=== PATIENT | female | born 1985 | race Asian ===

== ENCOUNTER 2019-01-23 11:00 | Outpatient (CLI) | payer MEDICAID, SELFPAY ==
[2019-01-23 11:36] VITALS: BMI 26.8
[2019-01-23] MEDS: Lactated Ringers 1,000 ML 999 ML IV (12:00)
[2019-01-23] MEDS: Betamethasone/Betamethasone 30 MG/5 ML Vial 12 MG IM (12:01)
[2019-01-23 12:10] LABS: Mucous, Urine 0 SEEN /hpf (<or=2+); Red Blood Cells-Urine 0 SEEN /hpf (0-5); White Blood Cells 0 SEEN /hpf (0-5)
[2019-01-23 12:12] LABS: Color, Urine Yellow (Yellow); Glucose, Dipstick Normal (Normal); Ketone-Dipstick 15 mg/dl (Negative); Leukocyte Esterase-Dipstick Negative /ul (Negative); Nitrite-Dipstick Negative (Negative); Occult Blood-Urine Negative /ul (Negative); Protein-Dipstick Negative (Negative); Urine Bilirubin Dipstick Negative (Negative); Urine Clarity Sl. Cloudy (Clear); Urine Urobilinogen Normal (Normal)
[2019-01-23 12:14] LABS: Hematocrit 39.1 % (37-47); Hemoglobin 13.3 g/dl (12.0-15.0); Mean Corpuscular Hgb 29.5 pg (27.0-32.0); Mean Corpuscular Volume 86.7 fL (81-99); Mean Platelet Vol. 10.7 fl (6.2-12.0); Platelet Count 224 K/mm3 (150-450); RBC Distribution Width CV 13.4 % (11.6-14.6); RBC Distribution Width SD 42.7 fl (35.1-43.9); Red Blood Count 4.51 M/mm3 (4.2-5.4); White Blood Count 9.7 K/mm3 (4.4-11.0)
[2019-01-23 12:15] LABS: Scan Indicated on CBC? Y/N NO
[2019-01-23 12:24] LABS: Bacteria RARE /hpf (None Seen); Squamous Epithelial Cells - UA 0-5 SEEN /hpf (5-10)
--- NOTE | 2019-02-16 07:23 | OB.TRI.PN ---
Progress Notes Date of Service: 01/23/19 Progress Note: Presented to office for visit due to painful uterine contractions every 5 minutes and rating pain a 9/10. Thought she had leakage of fluid, wet prep negative in office. Sent to L&D for evaluation of labor. No vaginal bleeding and good movement. O: Cervix FT/posterior/thick FHT 120, moderate variability, accels, no decels, category 1 TOCO: Contractions 5 minutes apart, mild, lasting 90-110 seconds. Then changed to every 7-10 minutes mild A: False labor abdominal pain contractions P: 1) Contractions frequency and strength decreased. Patient more comfortable and resting in bed. False labor and no cervical change from office. 2) , Celestone dose given today, repeat in 24hrs, follow up in office with due to DM and would like to check blood sugar. 3) Give 1 liter LR. UA negative. 3) Discharge home, labor instructions reviewed. Laboratory Studies: Laboratory Tests 01/23/19 01/23/19 Range/Units 11:50 11:30 WBC 9.7 (4.4-11.0) K/mm3 RBC 4.51 (4.2-5.4) M/mm3 Hgb 13.3 (12.0-15.0) g/dl Hct 39.1 (37-47) % MCV 86.7 (81-99) fL MCH 29.5 (27.0-32.0) pg MCHC 34.0 (32-36) g/gl RDW 13.4 (11.6-14.6) % RDW Differential 42.7 (35.1-43.9) fl Plt Count 224 (150-450) K/mm3 MPV 10.7 (6.2-12.0) fl Urine Color Yellow (Yellow) Urine Clarity Sl. Cloudy (Clear) Urine pH 6.0 (5.0 - 8.0) Ur Specific [place] 1.010 (1.002-1.030) Urine Protein Negative (Negative) mg/dl Urine Glucose (UA) Normal (Normal) mg/dl Urine Ketones 15 H (Negative) mg/dl Urine Occult Blood Negative (Negative) /ul Urine Nitrite Negative (Negative) Urine Bilirubin Negative (Negative) mg/dL Urine Urobilinogen Normal (Normal) mg/dl Ur Leukocyte Esterase Negative (Negative) /ul Urine RBC 0 SEEN (0-5) /hpf Urine WBC 0 SEEN (0-5) /hpf Ur Squamous Epith Cells 0-5 SEEN (5-10) /hpf Urine Bacteria RARE (None Seen) /hpf Urine Mucus 0 SEEN (<or=2+) /hpf
== END 2019-01-23 14:28 | disposition home or self-care (01) ==
LOC: WPOUT 11:29 → WP 01-24 10:12
PROVIDERS: Family Provider Family Medicine; PCP Family Medicine; Referring Provider Advanced Practice Midwife; Visit Provider Advanced Practice Midwife
DX: O47.9 False labor, unspecified (principal)
CPT/HCPCS: 96360; 59025; 59050; 81001; 85027; 87086; 87088; 96372; 99218; J7120; G0378; J0702

== ENCOUNTER 2019-01-31 10:10 | Inpatient (IN) | payer MEDICAID, SELFPAY ==
[2019-01-31] VITALS (18 sets, daily range): BP systolic 97–110; BP diastolic 57–72; PULSE 86–115; RESP 16–20; TEMP 35.8–36.7; O2SAT 95–100; BMI 27.1
[2019-01-31] MEDS: Lactated Ringers 1,000 ML 150 ML IV (10:30)
[2019-01-31 10:50] LABS: Absolute Lymphocyte Count 2.22 X10^3/ul (0.83-4.51); Absolute Neutrophil Count 15.1 X10^3/uL (2.0-7.7); Basophil# 0.03 X10^3/uL; Basophil% 0.2 % (0-1); Eosinophil# 0.18 X10^3/uL; Hematocrit 41.2 % (37-47); Hemoglobin 14.3 g/dl (12.0-15.0); Lymphocyte # 2.22 X10^3/ul (4.0); Lymphocyte % 11.7 % (19-41); Mean Corp Hgb Conc 34.7 g/gl (32-36); Mean Corpuscular Hgb 29.9 pg (27.0-32.0); Mean Corpuscular Volume 86.2 fL (81-99); Mean Platelet Vol. 10.7 fl (6.2-12.0); Monocyte# 1.34 X10^3/uL; Monocyte% 7.1 % (0-10); Neutrophil # 15.08 X10^3/uL (2.7-7.7); Neutrophil % 79.6 % (47-70); Platelet Count 256 K/mm3 (150-450); RBC Distribution Width CV 13.5 % (11.6-14.6); RBC Distribution Width SD 42.6 fl (35.1-43.9); Red Blood Count 4.78 M/mm3 (4.2-5.4); White Blood Count 18.9 K/mm3 (4.4-11.0)
[2019-01-31] MEDS: Sodium Citrate/Citric Acid 30 ML UDC PO (10:50)
[2019-01-31 10:51] LABS: POSITIVE COUNT NO; POSITIVE DIFFERENTIAL NO; POSITIVE MORPHOLOGY NO
[2019-01-31] MEDS: Lactated Ringers 1,000 ML 999 ML IV (11:00)
[2019-01-31] MEDS: Cefazolin 2 GM in 0.9% Normal Saline 100 ML IV (11:06)
[2019-01-31] MEDS: Oxytocin 30 units/NS 500 ml 30 UNITS/500 ML IV.SOLN 167 UNITS IV (11:19)
--- NOTE | 2019-01-31 12:23 | PCM.HP.OB ---
- Problem List (1) 36 weeks gestation of Status: Acute (2) labor Status: Acute (3) Gestational diabetes Status: Acute (4) Current lake with history of congenital heart disease in prior child, antepartum Status: Acute (5) History of delivery Status: Acute (6) Echogenic intracardiac focus of fetus on ultrasound Status: Acute (7) Consanguinity Status: Acute (8) History of pre-eclampsia Status: Acute (9) History of delivery Status: Acute History Date of Admission: 01/31/19 Final MIGUEL ANGEL: 02/27/19 Gestational age: 36 Weeks and 1 Days History of this : This is a 33 year-old, G4, P2103, at 36 weeks gestational age admitted in labor. On admission she was 4 cm dilated with a bulging bag of water, and get q 1-2 mins. +Bloody show. H/o GDM: On no medication or insulin in the , but patient was not bringing in BG logs for review to appointments. Son w/ pulmonary stenosis: Pt met with MFM and had echo in this . H/o 3 prior sections Echogenic intracardiac focus on US: Pt did not get NIPT. Not seen on echo. Consanguinity: Pt and first cousins. H/o pre-e: Had prior IOL at 34 wks gestation for pre-e. Allergies No Known Allergies Allergy (Verified 01/31/19 10:41) Home Medications: Home Medications Vits [Prenatabs FA] 1 tablet PO DAILY 01/23/19 Smoking Status: Never smoker Alcohol: None Number of Fetus(es): 1 Heart Tracing: Patient was having recurrent late decelerations and variable decelerations prior to section. Moderate variability in between TOCO Analysis: Ctx's q 1-2 min History Past Pregnancies: Past Pregnancies Delivery Date Name GA/Weeks Outcome Route Weight Infant Gender Labor Length Anesthesia Delivery Location Provider FOB 33 IOL for pre-e C/S 38 C/S 39 C/S Labs: Normal echo 1 hr and 3 hr GTT abnormal B positive Antibody screen neg Hgb 12.3 UDS neg GC/CT neg HIV neg Hep B neg RPR NR RI Expected Delivery Method: Stat Section Review of Systems Genitourinary: Reports: - - +Ctx's q 1-2 min and bloody show Physical Exam General: Alert, - - Uncomfortable with ctx's HEENT: Atraumatic Lungs: - - No increased resp effort Abdomen: Soft, Non Tender, Gravid Extremities:: No edema Neurological: Neuro grossly intact TAXATION AGENT: Normal external genitalia Estimated gestational size: Appropriate for gestational size Presentation: Cephalic Cervix Dilation (cm): 8 Station: 0 Effacement (%): 90 Assessment/Plan All Active Problems 36 weeks gestation of (Acute) labor (Acute) Gestational diabetes (Acute) Current lake with history of congenital heart disease in prior child, antepartum (Acute) History of delivery (Acute) Echogenic intracardiac focus of fetus on ultrasound (Acute) Consanguinity (Acute) History of pre-eclampsia (Acute) History of delivery (Acute) This is a 33 year-old, G4, P2103, at 36 weeks gestational age who presented with ctx's q 1-2 min, cervical dilation 4 cm and bloody show. FHT with recurrent late and variable decelerations. Due to NRFHT and cervical dilation, proceeded with emergent section. Cvx 8 cm dilated with bulging bag of water once back in OR. - Emergent RTLCS - Ancef prior to C/S - BG prior to C/S given GDM - See op note
--- NOTE | 2019-01-31 12:40 | PCM.OPRPT ---
Problem List (1) 36 weeks gestation of Status: Acute (2) labor Status: Acute (3) Gestational diabetes Status: Acute (4) Current lake with history of congenital heart disease in prior child, antepartum Status: Acute (5) History of delivery Status: Acute (6) Echogenic intracardiac focus of fetus on ultrasound Status: Acute (7) Consanguinity Status: Acute (8) History of pre-eclampsia Status: Acute (9) History of delivery Status: Acute Report of Operation Date of Procedure: 01/31/19 Pre-Operative Diagnosis: 36 week gestation, labor, non-reassuring heart tracing, A1GDM, h/o 3 prior sections Post-Operative Diagnosis: As above Surgery/Procedure Performed:: Emergent RLTCS via pfannenstiel incision Description of Surgical Findings:: Moderate-large amount of adhesions and scar tissue noted. Fascia adherent to the rectus muscles. Peritoneum adherent to the uterus around fundus. Uterus unable to be exteriorized due to adhesions. Adnexa not able to be fully assessed due to adhesive disease. Bladder significantly adhered to the anterior surface of the uterus. Very thin lower uterine segment. No evidence of abruption upon entry into the uterus and with inspection of the placenta. Normal appearing placenta with 3 vessel cord. No uterine dehiscence. Fetus in vertex position. Clear fluid Type of Anesthesia:: Spinal Specimen's removed: Placenta Drains: Seth draining clear, yellow urin Estimated Blood Loss (mL): 1000 Description of Procedure: Patient prepped and draped in usual sterile fashion with a leftward tilt. Spinal anesthesia was adequate. Scalpel was used along prior Pfannenstiel skin incision, and the incision was carried down to the underlying layer of fascia. The fascia was incised in the midline and extended laterally using [place] scissors. The fascia was dense and adherent to the rectus muscles. The fascia was then dissected off of the rectus muscles cephalad and caudad with dense adhesions noted. The rectus muscles were already in the midline. The peritoneum was entered sharply and noted to be adherent to the uterus. The fundus was attempted to be palpated but dense scar tissue was noted all around the uterus. The bladder was significantly adhered to the anterior surface of the uterus and a bladder flap could not be created. A low transverse incision was made on the uterus with good visualization of the bladder. The lower uterine segment was noted to be very thin. With a hand from below to elevated the head, the was delivered in vertex position atraumatically. Cord was clamped and cut immediately and was handed off to nursery staff. No evidence of abruption upon entry into the uterus. Placenta was manually removed and there was no evidence of abruption. Placenta was normal appearing and intact. 3 vessel cord. Cord gases were collected. The uterus was unable to be exteriorized due to the dense scarring. A very small extension was noted along the left lateral uterus. There was a small tear in the midline of the uterus just above the hysterotomy where the uterus was very thin, and this was repaired in a running locked fashion with Vicryl. The uterine incision was closed in a running locked fashion using Vicryl, and incorporating the left lateral extension. Several additional figure of eight sutures were placed for hemostasis. Arrista was placed over the uterine incision. The bladder was backfilled with methylene blue and noted to be intact. The fascia was then closed in a running fashion using Vicryl. The subcutaneous layer was irrigated and closed in a running fashion using Vicryl. The skin was closed in a subcuticular fashion and steri strips were applied. Dressing was then placed. Instrument counts were correct. Patient tolerated procedure well and was taken to the recovery room in stable condition. Grafts/Implants Used: None - Complications None - Admit VTE Documentation VTE Present on Admission: No VTE Mechan Device Prophylaxis: SCD's VTE Pharm Prophylaxis ordered?: No Delivery Classification: JOSIAS Final MIGUEL ANGEL: 02/27/19 Final MIGUEL ANGEL Source: LMP Gestational age: 36 Weeks and 2 Days Indications for : Nonreassuring Status, - - H/o 3 prior sections, labor Amniotic Membrane Rupture Type: Artificial Amniotic Fluid Description: Clear Specimen(s) sent to pathology: None Drain: Seth to straight drain Cord Entanglement: None Cord Vessel Description: 3 Vessels Esitmated Blood Loss (ml): 1000 Gender: Female Delayed cord clamping: No Pre-op Antibiotic Given: Ancef 2 grams IV x1 Complications: None - Admit VTE Documentation VTE Present on Admission: No VTE Mechan Device Prophylaxis: SCD's VTE Pharm Prophylaxis ordered?: No
[2019-01-31 12:50] LABS: Bedside Glucose 127 mg/dL (70-110)
[2019-01-31 13:40] LABS: Bedside Glucose 161 mg/dL (70-110)
[2019-01-31] MEDS: proMETHazine 25 MG/ML Syringe 12.5 MG IV (14:12)
[2019-01-31] MEDS: 0.9% Saline Lock 10 ML Syringe IV (14:12)
[2019-01-31] MEDS: Lactated Ringers 1,000 ML 100 ML IV (15:48)
[2019-01-31] MEDS: Scopolamine 1mg/72hr Patch 1 PATCH TD (16:27)
[2019-01-31] MEDS: Ketorolac 30 MG/ML Syringe IV (17:51)
[2019-01-31 22:31] LABS: Bedside Glucose 157 mg/dL (70-110)
[2019-02-01] VITALS (8 sets, daily range): BP systolic 97–110; BP diastolic 56–58; PULSE 109–126; RESP 14–20; TEMP 36.1–37.6; O2SAT 96–100
[2019-02-01] MEDS: Ketorolac 30 MG/ML Syringe IV ×4 (00:25→17:55)
[2019-02-01] MEDS: Lactated Ringers 1,000 ML 100 ML IV (01:46)
[2019-02-01 06:26] LABS: Hematocrit 32.5 % (37-47); Hemoglobin 10.9 g/dl (12.0-15.0); Mean Corp Hgb Conc 33.5 g/gl (32-36); Mean Corpuscular Hgb 29.3 pg (27.0-32.0); Mean Corpuscular Volume 87.4 fL (81-99); Mean Platelet Vol. 10.3 fl (6.2-12.0); Platelet Count 236 K/mm3 (150-450); RBC Distribution Width CV 13.8 % (11.6-14.6); RBC Distribution Width SD 44.2 fl (35.1-43.9); Red Blood Count 3.72 M/mm3 (4.2-5.4); White Blood Count 22.3 K/mm3 (4.4-11.0)
[2019-02-01 06:26] LABS: Bedside Glucose 130 mg/dL (70-110)
[2019-02-01 06:29] LABS: Scan Indicated on CBC? Y/N NO
--- NOTE | 2019-02-01 07:21 | PCM.PN.OB ---
Patient Problems: Active and Suspected Problems 36 weeks gestation of (Acute) labor (Acute) Gestational diabetes (Acute) Current lake with history of congenital heart disease in prior child, antepartum (Acute) History of delivery (Acute) Echogenic intracardiac focus of fetus on ultrasound (Acute) Consanguinity (Acute) History of pre-eclampsia (Acute) History of delivery (Acute) Subjective: Patient doing well. Pain controlled. Lochia normal. No CP, SOB, leg pain. Ama diet without N/V. Ervin in placed. Not yet ambulating. - Physical Exam General: Alert, No apparent distress HEENT: Atraumatic Lungs: - - No increased resp effort Abdomen: Soft, - - ATTP, FF@U Extremities: No Calf Tenderness Skin: No rashes Neurological: Neuro grossly intact Psych/Mental Status: Normal Affect, Appropriate Vital Signs Temp Pulse Resp BP Pulse Ox 97.0 F L 110 H 20 H 97/56 L 96 02/01/19 03:40 02/01/19 06:13 02/01/19 06:13 02/01/19 03:40 02/01/19 06:13 Oxygen Delivery Method Room Air Weight: 143 lb 11.862 oz Body Mass Index (BMI) 27.1 Intake and Output for Last 24 Hours 01/30/19 01/31/19 02/01/19 23:59 23:59 23:59 Intake Total 3905 / 3905 2784 / 2784 Output Total 1100 / 1100 2400 / 2400 Balance 2805 / 2805 384 / 384 Laboratory Tests Past 24 Hrs 01/31/19 01/31/19 02/01/19 10:40 10:40 06:05 WBC 18.9 H 22.3 H RBC 4.78 3.72 L Hgb 14.3 10.9 L Hct 41.2 32.5 L MCV 86.2 87.4 MCH 29.9 29.3 MCHC 34.7 33.5 RDW 13.5 13.8 RDW Differential 42.6 44.2 H Plt Count 256 236 MPV 10.7 10.3 Immature Gran % (Auto) 0.400 Neut % (Auto) 79.6 H Lymph % (Auto) 11.7 L [place] % (Auto) 7.1 Eos % (Auto) 1.0 Baso % (Auto) 0.2 Absolute Neuts (auto) 15.1 H Absolute Lymphs (auto) 2.22 Total Counted Not Reportable Blood Type B POSITIVE Antibody Screen NEGATIVE POC Glucose 02/01/19 01/31/19 01/31/19 06:17 22:22 13:34 POC Glucose 130 H 157 H 161 H 01/31/19 10:41 POC Glucose 127 H Medical Necessity - Tobacco Use Smoking Status: Never smoker Assessment/Plan All Active Problems 36 weeks gestation of (Acute) labor (Acute) Gestational diabetes (Acute) Current lake with history of congenital heart disease in prior child, antepartum (Acute) History of delivery (Acute) Echogenic intracardiac focus of fetus on ultrasound (Acute) Consanguinity (Acute) History of pre-eclampsia (Acute) History of delivery (Acute) POD#1 s/p emergent - GDM: BG's slightly elevated. Will start a carb controlled diet and continue to check BG QID. Fasting this AM 130, but patient last ate around 1am - Tachycardia into 110's. Likely from acute blood loss anemia. Continue to monitor. Low suspicion for DVT. Pt on room air. No CP, SOB, leg pain - D/c ervin - Encourage ambulation today - Routine PO care
[2019-02-01] MEDS: 0.9% Saline Lock 10 ML Syringe IV ×3 (10:01→17:56)
[2019-02-01] MEDS: Enoxaparin 40 MG/0.4 ML Syringe SC (10:01)
[2019-02-01 13:02] LABS: Bedside Glucose 183 mg/dL (70-110)
[2019-02-01 16:41] LABS: Bedside Glucose 180 mg/dL (70-110)
[2019-02-01 21:20] LABS: Bedside Glucose 177 mg/dL (70-110)
--- NOTE | 2019-02-01 21:23 | NURSING ---
During assessment HR was 126, pt was up and moving around in room, bleeding appropriate, fundus firm. Room temperature up. At this time HR was rechecked and now 115. Also, 2-hr post prandial BS was 177, and according to post- protocol is WNL. Will continue to monitor.
[2019-02-01] MEDS: Insulin Lispro 100 UNIT/ML INSULN.PEN SC (21:54)
[2019-02-02] MEDS: Ketorolac 30 MG/ML Syringe IV ×2 (00:29→06:06)
[2019-02-02] MEDS: 0.9% Saline Lock 10 ML Syringe IV ×2 (00:29→06:06)
[2019-02-02 02:00] VITALS: BP 109/62; PULSE 96; RESP 16; TEMP 36.5; O2SAT 99
[2019-02-02 06:26] LABS: Bedside Glucose 127 mg/dL (70-110)
[2019-02-02 09:10] VITALS: BP 108/65; PULSE 101; RESP 20; TEMP 36.3; O2SAT 99
--- NOTE | 2019-02-02 09:54 | EKG12_ITS ---
Test Reason : Blood Pressure : / mmHG Vent. Rate : 104 BPM Atrial Rate : 104 BPM P-R Int : 136 ms QRS Dur : 076 ms QT Int : 296 ms P-R-T Axes : 063 069 039 degrees QTc Int : 389 ms Sinus tachycardia Otherwise normal ECG Confirmed by ORLIN HERMOSILLO, MARIPOSA ([id number]), content editor CJ SERVIN ([id number] on 02/06/2019 4:31:13 PM Referred By: DAMARIS Confirmed By:MARIPOSA ORDAZ MD
--- NOTE | 2019-02-02 10:23 | PN.OBGYN_ITS ---
Patient Problems: Active and Suspected Problems 36 weeks gestation of (Acute) labor (Acute) Gestational diabetes (Acute) Current lake with history of congenital heart disease in prior child, antepartum (Acute) History of delivery (Acute) Echogenic intracardiac focus of fetus on ultrasound (Acute) Consanguinity (Acute) History of pre-eclampsia (Acute) History of delivery (Acute) Subjective: Patient doing well. Pain controlled. No CP, SOB, lightheadedness, dizziness, pa lpitations, leg pain. She states she has always been tachycardic, and has had EKG's in the past because of this. Tolerating regular diet without N/V. Ambulating and voiding without difficulty. - Physical Exam General: Alert, No apparent distress HEENT: Atraumatic Lungs: - - No increased resp effort Abdomen: Soft, Non Tender, Non-Distended, - - FF@U-1, dressing with minimal shadowing Extremities: No Calf Tenderness Skin: No rashes Neurological: Neuro grossly intact Psych/Mental Status: Normal Affect, Appropriate Vital Signs Temp Pulse Resp BP Pulse Ox 97.4 F L 101 H 20 H 108/65 99 02/02/19 09:10 02/02/19 09:10 02/02/19 09:10 02/02/19 09:10 02/02/19 09:10 Oxygen Delivery Method Room Air Weight: 143 lb 11.862 oz Body Mass Index (BMI) 27.1 Intake and Output for Last 24 Hours 01/31/19 02/01/19 02/02/19 23:59 23:59 23:59 Intake Total 3905 / 3905 2784 / 2784 Output Total 1100 / 1100 4300 / 4300 Balance 2805 / 2805 -1516 / -1516 POC Glucose 02/02/19 02/01/19 02/01/19 06:13 21:09 16:33 POC Glucose 127 H 177 H 180 H 02/01/19 10:53 POC Glucose 183 H Medical Necessity - Tobacco Use Smoking Status: Never smoker Assessment/Plan All Active Problems 36 weeks gestation of (Acute) labor (Acute) Gestational diabetes (Acute) Current [place] with history of congenital heart disease in prior child, antepartum (Acute) History of delivery (Acute) Echogenic intracardiac focus of fetus on ultrasound (Acute) Consanguinity (Acute) History of pre-eclampsia (Acute) History of delivery (Acute) POD#2 s/p emergent - GDM: SSI ordered yesterday. Patient instructed to continue to check her blood sugars at home, and to have follow up with endocrinology - Tachycardia: Pt reports this is her baseline. Will get repeat CBC and EKG. No evidence of PE - Meeting all milestones for discharge - Dispo: Pt desires to go home. D/c home today. Discussed follow up with endo and incision check in 1 week
--- NOTE | 2019-02-02 10:26 | DCINST_ITS ---
Discharge Diet: Carb Control Diet Discharge Activity: May not drive while taking narcotic pain medications., May Shower May resume sexual activity in: 4-6 weeks Weight Bearing Status: Weight bearing as tolerated Lifting Restrictions: No lifting greater than 30 pounds Call your doctor if your incision/area has: Sudden Increased Bleeding, Increased Pain/ Swelling, Increased Redness, Foul Smelling Discharge Call your doctor if you observe: Fever of 101 or Higher, Inability to urinate, Inability to have a bowel movement, Using more than one pad per hour, Shortness of breath, Dizziness, Fainting spells, Chest pain, Increased palpitations (irregular heartbeat), Calf discomfort, Uncontrolled pain Suture Line Care: Avoid Pulling/Pushing Cleanse incision/area with: Soap & Water Additional Instructions: If you experience any of the following, contact your healthcare provider. * Bleeding that soaks a pad every hour for 2 hours * Fever 100.4 or higher * Unrelieved incision or abdominal pain * Swelling, redness, discharge or bleeding from your incision or episiotomy site * Your incision begins to separate * Problems urinating (including inability to urinate or burning while urinating). * Visual changes * Severe headache * Flu-like symptoms * Pain or redness in one of both of your breasts * Pain, warmth, tenderness or swelling in your legs, especially the calf area * Frequent nausea and vomiting * Symptoms of depression or anxiety If you experience any of the following, call 911 or go to the nearest Emergency Room. * Chest pain * Problems breathing * Seizure activity * Partial or complete paralysis of a body part, slurred speech, weakness or drooping of the face, or a sudden inability to walk or hold your balance Allergies/Adverse Reactions: Allergies No Known Allergies Allergy (Verified 01/31/19 10:41) Medications to take at Discharge Vits [Prenatabs FA] 1 tablet PO DAILY 01/23/19 Oxycodone HCl/Acetaminophen [Percocet 5-325 mg Tablet] 1 ea PO Q6H PRN PRN 7 Days #28 tab 02/02/19 The following prescriptions were given: Oxycodone HCl/Acetaminophen [Percocet 5-325 mg Tablet] 1 ea PO Q6H PRN PRN 7 Days #28 tab PRN Reason: Pain Follow-Up: Call to make an appointment with your doctor for an incision check in 1-2 weeks. You will also need a 6 week post- follow up appointment. Test results from this visit will be discussed in further detail at your follow- up appointment, if applicable. Please Follow Up With: Radha Miranda DO When: 1 week for incision check. 6 weeks for visit When: Endocrinology will call you with your appointment Proposed Discharge Date: 02/02/19
[2019-02-02] MEDS: Enoxaparin 40 MG/0.4 ML Syringe SC (10:37)
[2019-02-02 10:50] LABS: Bedside Glucose 95 mg/dL (70-110)
[2019-02-02 10:55] LABS: Hematocrit 32.7 % (37-47); Mean Corp Hgb Conc 33.6 g/gl (32-36); Mean Corpuscular Hgb 29.6 pg (27.0-32.0); Mean Corpuscular Volume 87.9 fL (81-99); Mean Platelet Vol. 10.4 fl (6.2-12.0); Platelet Count 290 K/mm3 (150-450); RBC Distribution Width CV 14.3 % (11.6-14.6); RBC Distribution Width SD 44.4 fl (35.1-43.9); Red Blood Count 3.72 M/mm3 (4.2-5.4); Scan Indicated on CBC? Y/N NO; White Blood Count 24.4 K/mm3 (4.4-11.0)
--- NOTE | 2019-02-15 07:51 | PCM.DC.SUM ---
Discharge Date and Diagnosis Date of Admission: 01/31/19 Date of Discharge: 02/02/19 Hospital Course and Treatment Operations: - - RLTCS Summary of Care Provided: The patient is a 33 year old F who presented at 36 weeks in labor. She was 4 cm dilated on admission with a bulging bag of water. FHT with recurrent variable and late decelerations. She was taken for an emergent repeat section. H/o 3 prior sections. GDM in this and BG control was unknown as patient did not regularly bring in BG logs. She had a routine post-op course. Blood sugars were elevated and patient was instructed to follow up with endocrinology . She was ambulating, voiding, tolerating a regular diet, and pain was well controlled on POD#2. She was discharged home in good condition to follow up in 1 week for an incision check. - Physical Exam Vital Signs Temp Pulse Resp BP Pulse Ox 97.4 F L 101 H 20 H 108/65 99 02/02/19 09:10 02/02/19 09:10 02/02/19 09:10 02/02/19 09:10 02/02/19 09:10 Oxygen Delivery Method Room Air Weight: 143 lb 11.862 oz Body Mass Index (BMI) 27.1 Discharge Diet: Carb Control Diet Discharge Activity: May not drive while taking narcotic pain medications., May Shower May resume sexual activity in: 4-6 weeks Weight Bearing Status: Weight bearing as tolerated Call your doctor if your incision/area has: Sudden Increased Bleeding, Increased Pain/ Swelling, Increased Redness, Foul Smelling Discharge Call your doctor if you observe: Fever of 101 or Higher, Inability to urinate, Inability to have a bowel movement, Using more than one pad per hour, Shortness of breath, Dizziness, Fainting spells, Chest pain, Increased palpitations (irregular heartbeat), Calf discomfort, Uncontrolled pain Suture Line Care: Avoid Pulling/Pushing Cleanse incision/area with: Soap & Water Home Medications: Medications to take at Discharge Vits [Prenatabs FA] 1 tablet PO DAILY 01/23/19 Please Follow Up With: Radha Miranda DO When: 1 week for incision check. 6 weeks for visit When: Endocrinology will call you with your appointment Medical Necessity - Tobacco Use Smoking Status: Never smoker Meaningful Use Info Meaningful Use Diagnoses (Choose all that apply): None applicable
== END 2019-02-02 11:55 | disposition home or self-care (01) | DRG 540 ==
PROVIDERS: Admitting Provider Obstetrics & Gynecology; Visit Provider Obstetrics & Gynecology
DX: O76 Abnormality in fetal heart rate and rhythm complicating labor and delivery (principal); O34.211 Maternal care for low transverse scar from previous cesarean delivery; O24.410 Gestational diabetes mellitus in pregnancy, diet controlled; O60.14X0 Preterm labor third trimester with preterm delivery third trimester, not applicable or unspecified; Z84.3 Family history of consanguinity; Z3A.36 36 weeks gestation of pregnancy; Z37.0 Single live birth
CPT/HCPCS: 82962; 85025; 85027; 86850; 86900; 93005; 99218; J7120; A4216; G0378; Q9968

== ENCOUNTER 2019-11-25 13:07 | Emergency (ER) | payer OTHER, SELFPAY ==
[2019-01-31 10:40] VITALS: BMI 27.1
[2019-11-25] VITALS (7 sets, daily range): BP systolic 106–127; BP diastolic 62–85; PULSE 98–116; RESP 15–18; TEMP 36.4–37.3; O2SAT 97–100; BMI 24.9
--- NOTE | 2019-11-25 13:16 | CT_ITS ---
STUDY: CT SOFT TISSUE NECK WITH CONTRAST REASON FOR EXAM: Female, 34 years old patient with choking and shortness of breath. Patient has elevated white count. RADIATION DOSAGE (If Supplied By Facility): CTDIvol = ( 15.51 ) mGy, DLP = ( 476.41 ) mGycm TECHNIQUE: The patient was scanned in a multi-detector CT scanner. High resolution transaxial imaging was performed following intravenous administration of 75 ml of IV Isovue-370. Sagittal and coronal images were reconstructed. Individualized dose optimization techniques were used for this CT. COMPARISON: None. FINDINGS: Normal bilateral parotid glands. Normal bilateral edger tailer spaces. Normal bilateral parapharyngeal spaces. Normal bilateral carotid spaces. Normal bilateral sublingual and submandibular glands and spaces. Normal visualized nasopharynx. Normal retropharyngeal space. Normal perivertebral space. The palatine tonsils are enlarged. They encroach upon the airway narrowing it. There is no definite tonsillar abscess currently. The visualized tongue, tongue base and oropharynx are normal. There are enlarged bilateral level 2A nodes. The largest left-sided tayler mass measures 2.1 x 1.9 x 1.6 cm in size. The largest right-sided tayler mass measures approximately 3.0 x 1.1 x 1.2 cm in size. There is no demonstrated solid or cystic mass lesion. There is no abnormal contrast enhancement. Normal epiglottis, bilateral vallecula and hypopharynx. The pre-epiglottic and paraglottic adipose spaces are normal. Normal visualized bilateral piriform sinuses, aryepiglottic folds, vocal cords, and arytenoid-cricoid articulations. Normal subglottic trachea. Normal bilateral lobes of the thyroid gland. Normal visualized pulmonary apices. Normal visualized paranasal sinuses. Normal visualized cervical spine. CT/Soft Tissue Neck WITH Contrast IMPRESSION: Enlarged palatine tonsils probably related to acute infection or inflammation with bilateral possibly reactive cervical lymphadenopathy . Electronically Signed: Debi Baca MD at 16:02 EST , Service support ,
--- NOTE | 2019-11-25 13:18 | ED.VIS.URI ---
History of Present Illness Informant: Patient, Significant Other Onset: Yesterday Context: Gradual Onset Timing: Continuous Quality: sharp Location: throat Current Severity: Severe Maximum Severity: Severe Worsened by: Swallowing, Eating Solids, Drinking Liquids Relieved by: - - nothing Associated Symptoms: Nasal Congestion. Negative for: Headache, Sinus Pressure, Myalgias, Nausea, Vomiting, Diarrhea, Shortness of Breath, Chest Pain, Nonproductive cough, Hemoptysis, Productive Cough Narrative: 34-year-old female presents to the emergency department with sore throat and a choking episode. Patient states that she was not eating or drinking anything but then she felt like she was choking and having a choking sensation. This occurred just prior to arrival. Her evaluated her. She was still breathing normally. She did not vomit. She did not have a coughing episode or coughing spell. She has had a progressively worsening sore throat since yesterday and her states that her voice has become abnormal today. She is able to swallow her secretions and prior to arrival was able to swallow water but has not eaten food today. She has had a subjective fever. She does not feel lightheaded or dizzy. She has not been short of breath. She has not had difficulty opening closing her mouth. Denies history of similar symptoms. Prior similar symptoms: No Recent Illness/Hospitalization: No <Max Culver - Last Filed: 11/25/19 16:14> <Erich Rowe - Last Filed: 11/25/19 20:32> Chief Complaint: Shortness of Breath Past Medical History Prior records reviewed: Yes Past Medical History: None Surgical History: - - Lives: With Family Smoking Status: Never smoker Alcohol: None Drugs: None <Max Culver - Last Filed: 11/25/19 16:14> <Erich Rowe - Last Filed: 11/25/19 20:32> - Allergies and Home Meds Allergies/Adverse Reactions: Allergies No Known Allergies Allergy (Verified 11/25/19 13:07) Primary Care Physician: Michael Ivan MD [STAFF PHYSICIAN] - 3-5 Days Review of Systems All systems negative except as indicated General: Reports: Chills, Fever, Subjective Eyes: Denies: Visual changes - bilaterally, Blurred Vision - bilaterally, Diplopia ENT: Reports: Rhinorrhea, Sore throat Cardiovascular: Denies: Chest pain, Palpitations, Heart racing Respiratory: Denies: Dyspnea, Cough, Sputum Gastrointestinal: Denies: Abdominal pain, Nausea, Vomiting, Diarrhea Genitourinary: Denies: Dysuria, Hematuria, Frequency Musculoskeletal: Denies: Myalgias, Arthralgias, Neck pain, Back pain Skin: Denies: Rash, Abscess, Abrasions, Wounds Neurological: Denies: Headache, Weakness, Parasthesia, Numbness Hematologic: Denies: Easy bruising, Easy bleeding Allergy: Denies: Uticaria, Swelling of the mouth, Swelling of the tongue <Max Culver - Last Filed: 11/25/19 16:14> Physical Exam Vital Signs/Narrative: Vital Signs Temp Pulse Resp BP Pulse Ox 11/25/19 13:08 98.3 F 116 H 17 123/80 H 98 Inital Vital Signs reviewed: Yes General: Well nourished, Well developed Head: Normocephalic, Atraumatic Eyes: Perrl, EOMI Ears: Normal external canal, TM's clear Nose: Congestion. Negative for: Purulent Drainage Mouth/Throat: Airway Patent, Posterior Oropharyngeal Erythema Tonsils: Left Tonsilar Erythema, Left Tonsilar Exudates, Left Tonsilar Swelling, - - Patient has a muffled voice. She has a large left-sided peritonsillar abscess. She is tolerating her secretions and is not drooling. She does not have any sublingual edema. Neck: Supple, Nontender, No Meningismus, Anterior Lymphadenopathy Cardiovascular: Regular rate, Regular rhythm, No murmurs Respiratory: No distress, CTA bilaterally, Chest nontender Abdomen: Soft, Nontender, Nondistended, Normal bowel sounds, No masses Back: Nontender, Normal Inspection Extremities: Nontender, No edema Skin: Normal color, No rash Neurological: Alert, Oriented x3 Psychological: Normal affect, Normal Mood <Max Culver - Last Filed: 11/25/19 16:14> Vital Signs/Narrative: Vital Signs Pulse Resp BP Pulse Ox 11/25/19 16:31 98 15 106/62 98 <Erich Rowe - Last Filed: 11/25/19 20:32> Diagnostic/Tx/Re-eval - Medical Decision Making On exam the patient has a muffled voice but she is tolerating secretions she is able to swallow and breathe normally. We gave her IV fluids IV Decadron and IV Toradol. Laboratory work-up was remarkable for white blood cell count of 21.5. The rest of her labs were unremarkable. CT scan of the soft tissue neck with IV contrast shows enlarged tonsils related to acute infection or inflammation with reactive cervical lymphadenopathy. Patient was given a dose of Unasyn. Repeat exam she feels improved. Voice is improved. She is able to eat and drink normally. Vital signs are stable. We will discharge her home with prescriptions for ibuprofen and Augmentin. She will be referred to ENT. She was advised that she develops worsening symptoms prior to evaluation by ENT she is to return to the emergency department and she voices understanding. Impressions Soft Tissue Neck CT 11/25/19 13:16 IMPRESSION: Enlarged palatine tonsils probably related to acute infection or inflammation with bilateral possibly reactive cervical lymphadenopathy . Electronically Signed: Debi Baca MD at 16:02 EST , Service support , 11/25/19 13:16 CT Neck [Soft Tissue Neck WITH Contrast] [CT] Stat Laboratory Results 11/25/19 11/25/19 11/25/19 13:25 13:25 13:34 WBC 21.5 H RBC 4.21 Hgb 12.7 Hct 37.9 MCV 90.0 MCH 30.2 MCHC 33.5 RDW Std Deviation 40.5 RDW Coeff of Vega 12.3 Plt Count 315 MPV 9.6 Immature Gran % (Auto) 0.800 Neut % (Auto) 83.9 H Lymph % (Auto) 7.6 L [place] % (Auto) 7.4 Eos % (Auto) 0.1 Baso % (Auto) 0.2 Absolute Neuts (auto) 18.1 H Absolute Lymphs (auto) 1.63 Nucleated RBC % 0 Differential Comment SCANNED Sodium 139 Potassium 3.6 Chloride 108 H Carbon Dioxide 27.0 Anion Gap 4 L BUN 11 Creatinine 0.58 Estim Creat Clear Calc 104.10 Est GFR (MDRD) Af Amer 154 Est GFR (MDRD) Non-Af 127 BUN/Creatinine Ratio 19.0 Glucose 116 H Calcium 9.3 Serum , Qual NEGATIVE <Max Culver - Last Filed: 11/25/19 16:14> - Medical Decision Making Attending note: 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 Agree with plan and work-up. Performed on [id number] evaluation. Worsening sore throat over 2 days, today felt like she choked on water worsening symptoms. No fevers. No allergies. No dyspnea. Exam notes 1-2+ right sided tonsils, 2+ left-sided tonsils uvula midline, no trismus. Patient asymmetric tonsils, protecting airway, work-up initiated rule out abscess was given steroids along with started on Unasyn. White count was 21, however CT scan notes no abscess. She was feeling better and stable. Continue antibiotics for tonsillitis and given follow-up with ENT, signs and symptom discussed to return. <Erich Rowe - Last Filed: 11/25/19 20:32> ED Disposition <Max Culver - Last Filed: 11/25/19 16:14> <Erich Rowe - Last Filed: 11/25/19 20:32> - Plan for ED Patient: Disposition: Home or Assisted Living Diagnosis: Tonsillitis Instructions: ED Tonsillitis Prescriptions: Amox/Clavulanate Tablet [Augmentin Tablet] 875 mg PO Q12H #20 tab Prescription Printed Ibuprofen [Motrin] 800 mg PO TID PRN PRN #20 tab PRN Reason: Pain Or Fever Prescription Printed Referrals: Michael Ivan MD [STAFF PHYSICIAN] - 3-5 Days
[2019-11-25] MEDS: 0.9% Normal Saline 1,000 ML 1000 ML IV (13:25)
[2019-11-25] MEDS: Ketorolac 15 MG/ML Vial IV (13:25)
[2019-11-25] MEDS: dexAMETHasone 10 MG/ML Vial IV (13:25)
[2019-11-25 13:42] LABS: Absolute Lymphocyte Count 1.63 X10^3/uL (0.83-4.51); Absolute Neutrophil Count 18.1 X10^3/uL (2.0-7.7); Basophil# 0.04 X10^3/uL; Basophil% 0.2 % (0-1); Eosinophil# 0.02 X10^3/uL; Eosinophils% 0.1 % (0-5); Hematocrit 37.9 % (37-47); Hemoglobin 12.7 g/dL (12.0-15.0); Lymphocyte # 1.63 X10^3/ul (4.0); Lymphocyte % 7.6 % (19-41); Mean Corp Hgb Conc 33.5 g/dL (32-36); Mean Corpuscular Hgb 30.2 pg (27.0-32.0); Mean Platelet Vol. 9.6 fl (6.2-12.0); Monocyte# 1.58 X10^3/uL; Monocyte% 7.4 % (0-10); NRBC Flagged by Analyzer 0 % (0-5); Neutrophil # 18.05 X10^3/uL (2.7-7.7); Neutrophil % 83.9 % (47-70); POSITIVE DIFFERENTIAL YES; Platelet Count 315 K/mm3 (150-450); RBC Distribution Width CV 12.3 % (11.6-14.6); RBC Distribution Width SD 40.5 fl (35.1-43.9); Red Blood Count 4.21 M/mm3 (4.2-5.4); White Blood Count 21.5 K/mm3 (4.4-11.0)
[2019-11-25 13:43] LABS: Differential Indicated SCAN CRITERIA MET
[2019-11-25 13:49] LABS: Anion Gap 4 (5-15); BUN 11 mg/dL (7-18); Calcium,Total 9.3 mg/dL (8.5-10.1); Chloride 108 mmol/L (98-107); Creatinine, Serum 0.58 mg/dL (0.55-1.02); EST Glomerular Filtration Rate 127 mL/min (>60); Est Glom Filt Rate - Afr Amer 154 mL/min (>60); Glucose 116 mg/dL (74-106); Potassium 3.6 mmol/L (3.5-5.1); Sodium Level 139 mmol/L (136-145)
[2019-11-25 14:10] LABS: Internal QC Validated? YES +Cl - CLEAR BKGD; Pregnancy, Serum, hCG Quali. NEGATIVE Negative
[2019-11-25 14:38] LABS: Differential Comment SCANNED
--- NOTE | 2019-11-25 16:32 | ED.RN ---
PT A+[id number], EDUCATED BY THIS RN ON D.C INSTRUCTIONS AND HOME GOING PRESCRIPTIONS. PT SIGNS FORM RELEASING MEDICAL RECORD TO TAKE HOME LAB WORK RESULTS AND CT RESULTS. PT VERBALIZES UNDERSTANDING OF INSTRUCTIONS AND DENIES ANY FURTHER QUESTIONS. PT ABLE TO SWALLOW WITHOUT DIFFICULTY. IV D/C AND COVERED WITH 2X2 GAUZE AND PAPER TAPE. PT DRESSES SELF AND AMBULATES OUT OF DEPT WITH SPOUSE.
== END 2019-11-25 16:35 | disposition home or self-care (01) ==
PROVIDERS: Emergency Provider Physician Assistant Medical
DX: J03.90 Acute tonsillitis, unspecified (principal); R09.89 Other specified symptoms and signs involving the circulatory and respiratory systems; R06.02 Shortness of breath
CPT/HCPCS: 70491; 80048; 84703; 85025; 96361; 96365; 96375; 99284; J7030; Q9967; A4216; J0295

== ENCOUNTER → 2021-04-21 15:20 | Outpatient (CLI) | payer MEDICAID, SELFPAY ==
[2021-04-21 14:49] VITALS: BMI 26.8
[2021-04-21 16:28] LABS: Absolute Lymphocyte Count 2.39 X10^3/uL (0.83-4.51); Absolute Neutrophil Count 7.8 X10^3/uL (2.0-7.7); Basophil# 0.05 X10^3/uL; Basophil% 0.4 % (0-1); Eosinophils% 1.7 % (0-5); Hematocrit 41.3 % (37-47); Hemoglobin 13.9 g/dL (12.0-15.0); Lymphocyte # 2.39 X10^3/ul (0.83-4.51); Lymphocyte % 20.6 % (19-41); Mean Corp Hgb Conc 33.7 g/dL (32-36); Mean Corpuscular Volume 89.2 fL (81-99); Mean Platelet Vol. 9.6 fl (6.2-12.0); Monocyte# 1.13 X10^3/uL; Monocyte% 9.7 % (0-10); NRBC Flagged by Analyzer 0 % (0-5); Neutrophil # 7.78 X10^3/uL (2.7-7.7); Neutrophil % 67.3 % (47-70); Platelet Count 330 K/mm3 (150-450); RBC Distribution Width CV 12.2 % (11.6-14.6); RBC Distribution Width SD 39.4 fl (35.1-43.9); Red Blood Count 4.63 M/mm3 (4.2-5.4); White Blood Count 11.6 K/mm3 (4.4-11.0)
[2021-04-21 16:37] LABS: ALB/GLOB Ratio 0.8 RATIO (0.9-2.4); AST(SGOT) 18 U/L (15-37); Alanine Aminotransfer ALT/SGPT 34 U/L (13-56); Albumin, Serum 3.6 g/dL (3.2-5.0); Alkaline Phosphatase 76 U/L (45-117); Anion Gap 3 (5-15); BUN 10 mg/dL (7-18); BUN/Creat Ratio 18.1 RATIO (10-20); Calcium,Total 8.9 mg/dL (8.5-10.1); Chloride 107 mmol/L (98-107); Cholesterol 165 mg/dL (200); Creatinine, Serum 0.55 mg/dL (0.55-1.02); EST Glomerular Filtration Rate 134 mL/min (>60); Est Glom Filt Rate - Afr Amer 162 mL/min (>60); Globulin 4.4 g/dL (2.2-4.2); Glucose 100 mg/dL (74-106); High Density Lipoprotein 33 mg/dL; Potassium 4.1 mmol/L (3.5-5.1); Sodium Level 137 mmol/L (136-145); Triglycerides 138 mg/dL; Very Low Density Lipoprotein 28 mg/dL (5-40)
[2021-04-21 16:45] LABS: Hemoglobin A1c 6.1 % (3.8-5.6)
== END ==
PROVIDERS: Visit Provider Internal Medicine
DX: I10 Essential (primary) hypertension (principal); R73.9 Hyperglycemia, unspecified
CPT/HCPCS: 36415; 80053; 80061; 83036; 85025

== ENCOUNTER → 2022-02-17 | Outpatient (CLI) | payer MEDICAID, SELFPAY ==
[2022-02-17 16:37] LABS: Absolute Lymphocyte Count 3.09 X10^3/uL (0.83-4.51); Absolute Neutrophil Count 6.7 X10^3/uL (2.0-7.7); Basophil# 0.05 X10^3/uL; Basophil% 0.5 % (0-1); Eosinophil# 0.25 X10^3/uL; Eosinophils% 2.3 % (0-5); Hematocrit 42.6 % (37-47); Hemoglobin 14.5 g/dL (12.0-15.0); Lymphocyte # 3.09 X10^3/ul (0.83-4.51); Lymphocyte % 28.4 % (19-41); Mean Corpuscular Hgb 30.5 pg (27.0-32.0); Mean Corpuscular Volume 89.5 fL (81-99); Mean Platelet Vol. 9.9 fl (6.2-12.0); Monocyte# 0.77 X10^3/uL; Monocyte% 7.1 % (0-10); NRBC Flagged by Analyzer 0 % (0-5); Neutrophil # 6.67 X10^3/uL (2.7-7.7); Neutrophil % 61.3 % (47-70); Platelet Count 408 K/mm3 (150-450); RBC Distribution Width CV 11.8 % (11.6-14.6); RBC Distribution Width SD 38.5 fl (35.1-43.9); Red Blood Count 4.76 M/mm3 (4.2-5.4); White Blood Count 10.9 K/mm3 (4.4-11.0)
[2022-02-17 16:54] LABS: Hemoglobin A1c 6.1 % (3.8-5.6)
[2022-02-17 17:07] LABS: AST(SGOT) 17 U/L (15-37); Alanine Aminotransfer ALT/SGPT 36 U/L (13-56); Albumin, Serum 3.9 g/dL (3.2-5.0); Alkaline Phosphatase 73 U/L (45-117); Anion Gap 6 (5-15); BUN 13 mg/dL (7-18); Calcium,Total 9.6 mg/dL (8.5-10.1); Chloride 106 mmol/L (98-107); Creatinine, Serum 0.65 mg/dL (0.55-1.02); EST Glomerular Filtration Rate 110 mL/min (>60); Est Glom Filt Rate - Afr Amer 133 mL/min (>60); Glucose 115 mg/dL (74-106); Magnesium 1.9 mg/dL (1.6-2.6); Potassium 3.9 mmol/L (3.5-5.1); Protein, Total 7.9 g/dL (6.4-8.2); Sodium Level 138 mmol/L (136-145)
== END | disposition home or self-care (01) ==
LOC: BIMLAB 15:07
PROVIDERS: PCP Internal Medicine; Visit Provider Internal Medicine
DX: R73.03 Prediabetes (principal); I10 Essential (primary) hypertension
CPT/HCPCS: 36415; 80053; 83036; 83735; 85025

== ENCOUNTER → 2023-06-25 | Outpatient (CLI) | payer MEDICAID, SELFPAY ==
[2023-06-25 12:21] LABS: Absolute Lymphocyte Count 2.14 X10^3/uL (0.83-4.51); Absolute Neutrophil Count 8.3 X10^3/uL (2.0-7.7); Basophil# 0.04 X10^3/uL; Basophil% 0.3 % (0-1); Eosinophil# 0.11 X10^3/uL; Hemoglobin 14.5 g/dL (12.0-15.0); Lymphocyte # 2.14 X10^3/ul (0.83-4.51); Lymphocyte % 18.7 % (19-41); Mean Corp Hgb Conc 33.7 g/dL (32-36); Mean Corpuscular Hgb 30.7 pg (27.0-32.0); Mean Corpuscular Volume 90.9 fL (81-99); Monocyte# 0.81 X10^3/uL; Monocyte% 7.1 % (0-10); NRBC Flagged by Analyzer 0 % (0-5); Neutrophil # 8.32 X10^3/uL (2.7-7.7); Neutrophil % 72.6 % (47-70); Platelet Count 349 K/mm3 (150-450); RBC Distribution Width CV 12.1 % (11.6-14.6); RBC Distribution Width SD 40.3 fl (35.1-43.9); Red Blood Count 4.73 M/mm3 (4.2-5.4); White Blood Count 11.5 K/mm3 (4.4-11.0)
[2023-06-25 12:24] LABS: Erythrocyte Sedimentation Rate 15 mm/hr (0-30)
[2023-06-25 13:13] LABS: AST(SGOT) 13 U/L (15-37); Alanine Aminotransfer ALT/SGPT 31 U/L (13-56); Albumin, Serum 3.9 g/dL (3.2-5.0); Alkaline Phosphatase 64 U/L (45-117); Anion Gap 5 (5-15); BUN 14 mg/dL (7-18); BUN/Creat Ratio 23.9 RATIO (10-20); CRP < 2.90 mg/L (0.0-3.0); Calcium,Total 9.2 mg/dL (8.5-10.1); Chloride 108 mmol/L (98-107); Cholesterol 128 mg/dL (200); Creatinine, Serum 0.59 mg/dL (0.55-1.02); EST Glomerular Filtration Rate 123 mL/min (>60); Est Glom Filt Rate - Afr Amer 148 mL/min (>60); Globulin 3.8 g/dL (2.2-4.2); Glucose 123 mg/dL (74-106); High Density Lipoprotein 42 mg/dL; Potassium 3.9 mmol/L (3.5-5.1); Protein, Total 7.7 g/dL (6.4-8.2); Rheumatoid Factor < 10.0 IU/mL (<15); Sodium Level 137 mmol/L (136-145); Triglycerides 55 mg/dL; Very Low Density Lipoprotein 11 mg/dL (5-40)
== END | disposition home or self-care (01) ==
LOC: BIMLAB 11:03
PROVIDERS: PCP Internal Medicine; Visit Provider Internal Medicine
DX: I10 Essential (primary) hypertension (principal); M19.90 Unspecified osteoarthritis, unspecified site
CPT/HCPCS: 36415; 80053; 80061; 85025; 85652; 86140; 86431